=== PATIENT | female | born 1970 ===

== ENCOUNTER 2018-02-08 14:19 | Emergency (ER) | payer OTHER ==
--- NOTE | 2018-02-08 15:55 | ED PDOC ---
HPI: Back Time Seen by Provider: 02/08/18 15:12 Chief Complaint (Nursing): Back Pain Chief Complaint (Provider): Back Pain History Per: Patient History/Exam Limitations: no limitations Onset/Duration Of Symptoms: Hrs Current Symptoms Are (Timing): Still Present Additional Complaint(s): Martine Raymond is a 47 year old female with a past medical history of kidney stones who is presenting to the ED for evaluation of back pain onset earlier today. 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 Patient denies any numbness, tingling, rash, abdominal pain, chest pain, or shortness of breath. PMD: none provided Past Medical History Reviewed: Historical Data, Nursing Documentation, Vital Signs Vital Signs: Last Vital Signs Temp 97.5 F L 02/08/18 14:21 Pulse 62 02/08/18 14:21 Resp 16 02/08/18 14:21 BP 131/89 02/08/18 14:21 Pulse Ox 99 02/08/18 14:21 - Medical History PMH: Kidney Stones - Surgical History Surgical History: No Surg Hx - Family History Family History: States: Unknown Family Hx - Social History Current smoker - smoking cessation education provided: No Alcohol: None Drugs: Denies - Home Medications Home Medications: Ambulatory Orders Medication Instructions Recorded Cyclobenzaprine [Cyclobenzaprine 10 mg PO Q8 PRN #10 tab 02/08/18 HCl] Naproxen [Naprosyn] 500 mg PO BID PRN #10 tab 02/08/18 - Allergies Allergies/Adverse Reactions: Allergies Allergy/AdvReac Type Severity Reaction Status Date / Time No Known Allergies Allergy Verified 02/08/18 14:20 Review of Systems ROS Statement: Except As Marked, All Systems Reviewed And Found Negative Cardiovascular: Negative for: Chest Pain Respiratory: Negative for: Shortness of Breath Gastrointestinal: Negative for: Abdominal Pain Musculoskeletal: Positive for: Back Pain Skin: Negative for: Rash Neurological: Negative for: Numbness Physical Exam - Reviewed Nursing Documentation Reviewed: Yes Vital Signs Reviewed: Yes - Physical Exam Appears: Positive for: Non-toxic, In Acute Distress (moderate painful) Head Exam: Positive for: ATRAUMATIC, NORMAL INSPECTION, NORMOCEPHALIC Skin: Positive for: Normal Color, Warm, DRY Eye Exam: Positive for: EOMI, Normal appearance, PERRL Neck: Positive for: Normal, Painless ROM, Supple Cardiovascular/Chest: Positive for: Regular Rate, Rhythm. Negative for: Murmur Respiratory: Positive for: Normal Breath Sounds. Negative for: Respiratory Distress Gastrointestinal/Abdominal: Positive for: Normal Exam, Soft. Negative for: Tenderness Back: Positive for: R CVA Tenderness Extremity: Positive for: Normal ROM. Negative for: Deformity, Swelling Neurologic/Psych: Positive for: Alert, Oriented (x3). Negative for: Motor/Sensory Deficits - Laboratory Results Result Diagrams: 02/08/18 16:00 02/08/18 16:00 - ECG O2 Sat by Pulse Oximetry: 99 (RA) Pulse Ox Interpretation: Normal - Progress ED Course And Treament: CT abd/pelvis w/o contrast: No CT scan evidence of obstructive uropathy. No appreciable hydronephrosis, perinephric change, or renal calculus. Bladder is otherwise mildly distended but without wall thickening or bladder calculus. On re-evaluation, pt. reports pain has improved but still present. States she is on the 2nd day of menstrual cycle. Informed of results and advised to f/u with [facility] for further evaluation but is to return to ED immediately if symptoms worsen. Medical Decision Making Medical Decision Making: Time: 15:37 Plan: --CT Abd/Pelvis --CMP --ED Urine --CBC --Toradol 15 mg IVP --Urine Culture --Urinalysis Scribe Attestation: Documented by, Mya Chapin acting as a scribe for Facundo Brar PA-C. Provider Scribe Attestation: All medical record entries made by the Scribe were at my direction and personally dictated by me. I have reviewed the chart and agree that the record accurately reflects my personal performance of the history, physical exam, medical decision making, and the department course for this patient. I have also personally directed, reviewed, and agree with the discharge instructions and disposition. Disposition - Clinical Impression Clinical Impression: Back strain, Hematuria - Patient ED Disposition Is Patient to be Admitted: No - Disposition Referrals: [facility] [Outside] Disposition: Routine/Home Disposition Time: 18:14 Condition: IMPROVED Additional Instructions: FOLLOW UP WITH [facility] FOR FURTHER EVALUATION RETURN TO ED IMMEDIATELY IF SYMPTOMS WORSEN MARTINE WHITEHEAD, thank you for letting us take care of you today. Your provider was Aniyah Gaston MD and you were treated for BACK PAIN. The emergency medical care you received today was directed at your acute symptoms. If you were prescribed any medication, please fill it and take as directed. It may take several days for your symptoms to resolve. Return to the Emergency Department if your symptoms worsen, do not improve, or if you have any other problems. Please contact your doctor or call one of the physicians/clinics you have been referred to that are listed on the Patient Visit Information form that is included in your discharge packet. Bring any paperwork you were given at discharge with you along with any medications you are taking to your follow up visit. Our treatment cannot replace ongoing medical care by a primary care provider outside of the emergency department. Thank you for allowing the [facility] team to be part of your care today. If you had an X-Ray or CT scan: A Radiologist will review the ED reading if any change in treatment is needed we will contact you. If you had a blood, urine, or wound culture: It will take several days for the results, if any change in treatment is needed we will contact you. If you had an STI test: It will take 48 hours for the results. Please call after 1 week if you have not heard back. Prescriptions: Cyclobenzaprine [Cyclobenzaprine HCl] 10 mg PO Q8 PRN #10 tab PRN Reason: Muscle Spasm Naproxen [Naprosyn] 500 mg PO BID PRN #10 tab PRN Reason: Pain Instructions: Muscle Strain (DC) Forms: [employer] (Rwandan) Print Language: MALTESE
[2018-02-08 16:11] LABS: BASO # 0.1 K/uL (0.0-0.2); BASO % 0.8 % (0.0-2.0); EOS # 0.1 K/uL (0.0-0.7); HEMOGLOBIN 9.9 g/dL (12.0-16.0); LYMPH # 1.6 K/uL (1.0-4.3); LYMPH % 20.4 % (20.0-40.0); MEAN CORPUSCULAR HEMOGLOBIN 23.4 pg (27.0-31.0); MEAN CORPUSCULAR HGB CONC 30.8 g/dL (33.0-37.0); MEAN PLATELET VOLUME 7.3 fl (7.2-11.7); MONO # 0.6 K/uL (0.0-0.8); MONO % 7.2 % (0.0-10.0); NEUT # 5.6 K/uL (1.8-7.0); NEUT % 70.6 % (50.0-75.0); RBC 4.22 Mil/uL (3.80-5.20); RED CELL DISTRIBUTION WIDTH 17.7 % (11.5-14.5)
[2018-02-08 16:22] LABS: ALB/GLOB RATIO 1.2 (1.0-2.1); ALT/SGPT 23 U/L (9-52); AST/SGOT 20 U/L (14-36); BLOOD UREA NITROGEN 17 mg/dl (7-17); CALCIUM 8.9 mg/dL (8.4-10.2); GFR NON-AFRICAN AMERICAN > 60
[2018-02-08 16:34] LABS: SQUAMOUS EPITHIAL 4 /hpf (0-5); URINE BILIRUBIN NEGATIVE (NEGATIVE); URINE BLOOD LARGE (NEGATIVE); URINE CLARITY CLOUDY (Clear); URINE COLOR YELLOW (YELLOW); URINE GLUCOSE (UA) NEG (Normal); URINE LEUKOCYTE ESTERASE TRACE Leu/uL (Negative); URINE PROTEIN 30 mg/dL (NEGATIVE); URINE UROBILINOGEN 0.2-1.0 mg/dL (0.2-1.0)
--- NOTE | 2018-02-08 17:58 | CT ---
Date of service: 02/08/2018 PROCEDURE: CT Abdomen and Pelvis without intravenous contrast HISTORY: hematuria, R flank pain COMPARISON: No prior TECHNIQUE: CT scan of the abdomen and pelvis was performed without the use of intravenous contrast. Multiple helical axial images were performed. Coronal and sagittal reformatted images were obtained.. Contrast dose: No contrast. Radiation dose: Total exam DLP = 453.47 mGy-cm. This CT exam was performed using one or more of the following dose reduction techniques: Automated exposure control, adjustment of the mA and/or kV according to patient size, and/or use of iterative reconstruction technique. FINDINGS: LOWER THORAX: Mild linear subsegmental atelectasis or scarring is seen in the medial right middle lobe region. Minor atelectatic changes are seen posteriorly at the lung bases without infiltrate or effusion. No pericardial effusion is seen. Distal esophagus is unremarkable. Stomach is suboptimally distended although no definite wall thickening is seen. Duodenum is within normal limits. LIVER: Unremarkable. No gross lesion or ductal dilatation. GALLBLADDER AND BILE DUCTS: Unremarkable. PANCREAS: Unremarkable. No gross lesion or ductal dilatation. SPLEEN: Unremarkable. ADRENALS: Unremarkable. No mass. KIDNEYS AND URETERS: Right kidney is slightly malrotated although no hydronephrosis or perinephric changes are seen. No renal calculi are identified in the right or left kidney. No hydronephrosis or perinephric changes are seen adjacent to either kidney. No appreciable ureteral calculus is noted. VASCULATURE: Unremarkable. No aortic aneurysm. No aortic atherosclerotic calcification or mural plaque present. BOWEL: Unremarkable. No obstruction. No gross mural thickening. Small bowel is not dilated and no fold thickening is seen. APPENDIX: Unremarkable. Normal appendix. PERITONEUM: No appreciable pneumoperitoneum or ascites is noted. LYMPH NODES: Unremarkable. No enlarged lymph nodes. BLADDER: Bladder is mildly distended, without evidence of wall thickening or bladder calculus. REPRODUCTIVE: There appears to be evidence of prior tubal ligation surgery. Uterus is mildly enlarged. No adnexal masses are noted. BONES: No acute fracture. OTHER FINDINGS: None. IMPRESSION: No CT scan evidence of obstructive uropathy. No appreciable hydronephrosis, perinephric change, or renal calculus. Bladder is otherwise mildly distended but without wall thickening or bladder calculus. Further clinical evaluation for the patient's hematuria is suggested.
[2018-02-08 18:43] VITALS: BP 130/86; PULSE 66; RESP 18; TEMP 97.8; O2SAT 100
== END 2018-02-08 18:41 | disposition home or self-care (01) ==
LOC: H.ER 14:19
DX: S39.012A Strain of muscle, fascia and tendon of lower back, initial encounter (principal); X50.9XXA Other and unspecified overexertion or strenuous movements or postures, initial encounter; Y99.0 Civilian activity done for income or pay
CPT/HCPCS: 74176; 80053; 81003; 81025; 85025; 87086; 96374; 99284; J1885